=== PATIENT | male | born 1990 | race Two or more races ===

== ENCOUNTER 2021-08-27 16:55 | Emergency (ER) | payer SELFPAY ==
[~2021-08-27] VITALS: Ht 165.1 cm; Wt 61.0 kg
[2021-08-27 19:04] LABS: BASOPHILS % 0.7 % (0.0-2.0); EOSINOPHILS % 3.3 % (0.0-5.0); HEMATOCRIT. 47.2 % (42.0-52.0); HEMOGLOBIN. 16.4 g/dL (14.0-18.0); LYMPHOCYTES % 29.2 % (20.0-50.0); MEAN CORPUSCULAR HEMOGLOBIN 31.9 pg (28.0-32.0); MEAN PLATELET VOLUME 9.1 fl (7.4-10.4); MONOCYTES % 8.8 % (2.0-8.0); PLATELET 220 x1000/uL (130-400); RED BLOOD CELL COUNT 5.13 mill/uL (4.7-6.1); RED CELL DISTRIBUTION WIDTH 13.1 % (11.6-14.6)
[2021-08-27 19:09] LABS: CHLORIDE 104 mEq/L (98-107)
[2021-08-27 20:25] VITALS: BP 127/79
[2021-08-27] MEDS ORDERED: IOHEXOL-300 100 ML BOTTLE ONE (21:07)
[2021-08-27] MEDS ORDERED: IBUP-2029 MT (23:05)
== END 2021-08-27 23:12 | disposition home or self-care (01) ==
LOC: ER 16:55
DX: R22.9 Localized swelling, mass and lump, unspecified (principal); R68.84 Jaw pain; R73.9 Hyperglycemia, unspecified; R03.0 Elevated blood-pressure reading, without diagnosis of hypertension
CPT/HCPCS: 36415; 70487; 80053; 85025; 99285; Q9967